=== PATIENT | female | born 1960 | race Caucasian/White ===

== ENCOUNTER → 2016-09-02 | Outpatient (CLI) | payer SELFPAY ==
[~2016-09-02] MED LIST: BUPROPION XL300 M1; CONCERTA54 M1 DOB; DOXEPIN HCL100 MG PO; HUMALOG100 UNIT/1; JANUVIA PO; LEVEMIR FL100 UNIT/1; LIPITOR20 MG PO; LOSARTAN POTASS50 MG PO; METFORMIN HCL1000 M2; OMEPRAZOLE40 M1 PO; TRICOR145 MG PO
== END | disposition home or self-care (01) ==
LOC: CLAB 09:06 → CBAR 09:06
DX: E66.01 Morbid (severe) obesity due to excess calories (principal)
CPT/HCPCS: 36415; 86677

== ENCOUNTER → 2016-09-04 | Day surgery (SDC) | payer SELFPAY ==
--- NOTE | ~2016-09-04 | OR ---
Unit #: [id number] #: [id number] Patient: DAMON GRAHAM [id number] [facility]. [place], [place] [address] [id number] MR#: [id number] NAME: DAMON GRAHAM ROOM: Date of Procedure: 09/04/2016 Admission Date: 09/04/2016 Surgeon: Vinh Jay III, M.D. : 1960 Attending Physician: Vinh Jay III, M.D. Primary Care Physician: Negrita Dicekns M.D. OPERATIVE REPORT PREOPERATIVE DIAGNOSIS Severe obesity. POSTOPERATIVE DIAGNOSIS Severe obesity. PROCEDURES PERFORMED Esophagogastroduodenoscopy and endoscopic placement of Orbera intragastric balloon. ANESTHESIA IV general without intubation. SPECIMENS None. COMPLICATIONS None apparent. INDICATIONS FOR PROCEDURE This is a 55-year-old lady, who has been evaluated for intragastric balloon system placement. She understands risks and benefits of the procedure. Please see my office note for full details. DESCRIPTION OF PROCEDURE After consent was obtained, the patient was brought to the endoscopy suite and placed in the left lateral decubitus position. We titrated the above sedation and I passed an EGD scope easily into the esophagus under direct visualization. She had normal peristalsis. No evidence of any erosions or esophagitis. The stomach was without any ulceration or masses. There was no gastritis. The pylorus was patent and the first and second portions of the duodenum appeared normal. There was no retained food in the stomach. I then retroflexed the scope within the cardia and again, there was no hiatal hernia seen. The scope was then carefully withdrawn. I then lubricated the intragastric balloon. It was placed into the oropharynx and easily slid down into the stomach area. I followed this down with the endoscope. Once I had the balloon in the upper stomach, I then insufflated the balloon after removing the guidewire. I placed 640 mL of normal saline within the Orbera balloon and after it was in good position, I removed the catheter tubing from the balloon and this included all the attachments. Again, the balloon was in good position. I suctioned out the excess air from the stomach. The scope was withdrawn. Unit #: [id number] #: [id number] Patient: DAMON GRAHAM She tolerated the procedure without any problems and the entire procedure took 14 minutes. The serial number of the balloon was [id number]. Dictated by... Vinh Jay III, M.D. VCL/benito TD: 09/05/2016 05:07 JOB #: [id number] OPERATIVE REPORT Page 1 of 1 X Vinh Jay III, MD PROCEDURE OPERATIVE NOTE
== END | disposition home or self-care (01) ==
LOC: COPS 09:33
DX: E66.01 Morbid (severe) obesity due to excess calories (principal); I10 Essential (primary) hypertension; E11.9 Type 2 diabetes mellitus without complications; E78.00 Pure hypercholesterolemia, unspecified; K21.9 Gastro-esophageal reflux disease without esophagitis; J45.909 Unspecified asthma, uncomplicated; G47.30 Sleep apnea, unspecified; Z68.27 Body mass index [BMI] 27.0-27.9, adult; Z88.6 Allergy status to analgesic agent; Z88.8 Allergy status to other drugs, medicaments and biological substances; Z79.4 Long term (current) use of insulin; Z79.899 Other long term (current) drug therapy; Z90.49 Acquired absence of other specified parts of digestive tract; Z98.49 Cataract extraction status, unspecified eye; Z98.890 Other specified postprocedural states
CPT/HCPCS: 82947; 84703; J2250